=== PATIENT | female | born 1990 | race Caucasian/White ===

== ENCOUNTER 2024-04-15 09:12 | Emergency (ER) | payer SELFPAY ==
[2024-04-15] MEDS ORDERED: Ondansetron PF 4 MG/2 ML Vial ONE (09:35)
[2024-04-15 10:01] LABS: #Basophils 0.04 10x3/uL (0.0-0.2); %Basophils 0.6 % (0.0-1.0); %Eosinophils 0.6 % (0.0-10.0); %Lymphocytes 22.2 % (21.0-51.0); %Monocytes 6.7 % (0.0-10.0); %Neutrophils 69.8 % (42.0-75.0); Hematocrit 38.4 % (36.0-47.0); Hemoglobin 12.7 g/dL (12.0-16.0); Mean Corpuscular HGB CONC 33.1 g/dL (32.0-36.0); Mean Corpuscular Hemoglobin 28.6 pg (27.0-31.0); Mean Corpuscular Volume 86.5 fL (78.0-98.0); Mean Platelet Volume 11.4 fL (7.4-10.4); Platelet Count 184 10x3/uL (130-400); RBC Distribution Width 13.3 % (11.5-14.5); Red Blood Cell (RBC) Count 4.44 mill/uL (4.20-5.40)
[2024-04-15 10:16] LABS: Bacteria/HPF None Seen HPF (None Seen); Bilirubin Negative (Negative); Blood, Urine Negative (Negative); CAUTI Indications for Culture Pelvic or flank pain; Clarity Turbid (Clear); Glucose, Urine (Dipstick) Normal (Negative); Ketone, Urine Negative (Negative); Leukocyte Negative Leu/uL (Negative); Nitrite Negative (Negative); Pregnancy Test - Urine (BHCG) Negative (Negative); Pregu Control Background? CLEAR/WHITE (CLR/WHITE); Pregu Control Bar Appear? YES (CONTROL BAR); Protein, Urine (Dipstick) Negative (Neg-Trace); RBC/HPF 0-3 HPF (0-3); Specific Gravity 1.013 (1.002-1.036); Specific Gravity, Urine 1.013 (1.002-1.036); Squamous Epithelial 0-3 HPF (0-3); Urobilinogen Normal mg/dL (Less than 2); WBC/HPF 0-3 HPF (0-3)
[2024-04-15 10:17] LABS: Urine Culture Reflex No No
[2024-04-15 10:18] LABS: ALT (SGPT) 12 U/L (8-55); AST (SGOT) 15 U/L (5-34); Albumin 3.9 g/dL (3.5-5.0); Alkaline Phosphatase 68 U/L (40-110); Anion Gap 13 mmol/L (10-20); BUN (Urea Nitrogen) 9 mg/dL (7.0-18.7); Bilirubin, Total 0.3 mg/dL (0.2-1.2); Calc. Creatinine Clearance 0 mL/min (70-130); Carbon Dioxide 20 mmol/L (22-29); Chloride 110 mmol/L (98-107); Estimated GFR 120; Globulin 3.5 g/dL (2.4-3.5); Glucose 92 mg/dL (70-105); Lipase 21 U/L (8-78); Potassium 4.1 mmol/L (3.5-5.1); Protein, Total 7.4 g/dL (6.0-8.3); Sodium 139 mmol/L (136-145)
[2024-04-15] MEDS ORDERED: diphenhydrAMINE 50 MG/ML VIAL ONE (10:51)
[2024-04-15] MEDS ORDERED: Metoclopramide HCl 10 MG (2 mL) VIAL ONE (10:51)
[2024-04-15] MEDS ORDERED: Acetaminophen 500 MG TAB ONE (10:51)
[2024-04-15] MEDS ORDERED: Magnesium 2 GM/50 ML BAG (IN WATER) ONE (12:23)
[2024-04-15] MEDS ORDERED: methylPREDNISolone Sod Succ/PF 125 MG/2 ML VIAL ONE (12:23)
== END 2024-04-15 13:31 | disposition home or self-care (01) ==
LOC: ERS 09:12
DX: R10.11 Right upper quadrant pain (principal); N20.0 Calculus of kidney
CPT/HCPCS: 36415; 74176; 76705; 80053; 81001; 81025; 83690; 85025; 96365; 96366; 96368; 96375; J1200; J2405; J2765; J2919; J3475